=== PATIENT | female | born 1960 | race Caucasian/White ===

== ENCOUNTER 2019-04-13 19:34 | Emergency (ER) ==
[2019-04-13 19:37] VITALS: BP 113/69; TEMP 97.7; BMI 26.2
[2019-04-13] MEDS ORDERED: MORPHINE 2 MG/ML SYRINGE IM STA (20:07)
[2019-04-13] MEDS ORDERED: ZOFRAN 4 MG/2 ML IM STA (20:08)
--- NOTE | 2019-04-13 20:25 | CT ---
CT cervical spine without contrast HISTORY: Fall TECHNIQUE: CT of the cervical spine with multiplanar reformations. FINDINGS: Reformatted images demonstrate normal alignment with preservation of vertebral body height . Focal degenerative endplate change at the C5-6 with mild central canal narrowing. No fracture see n on the axial or reformatted images. No acute surrounding soft tissue abnormalitites. Lung apices a re clear. IMPRESSION: No acute findings in the cervical spine.
--- NOTE | 2019-04-13 20:28 | CT ---
EXAM: CT of the left shoulder without contrast. HISTORY: Fall. COMPARISON: None available. TECHNIQUE: Contiguous axial images were obtained through the left shoulder. Sagittal and coronal re formats were reviewed. No contrast. 3-D volume images reviewed as well. FINDINGS: There is a comminuted fracture of the left surgical neck extending to the greater tuberosi ty. The articular surfaces intact. No other fractures are seen. There are no lytic or blastic lesi ons. Is unremarkable. There are old, healed fractures of the lateral left fourth and fifth ribs. N o pneumothorax. IMPRESSION: Comminuted fracture of the surgical neck of the left proximal years.
--- NOTE | 2019-04-13 20:35 | ED.PDOC ---
General ED Provider: Dr. LEI AMAYA-ER Chief Complaint: Fall Stated Complaint: my shoulder hurts Time Seen by Physician: 19:40 Mode of Arrival: Walk-In Information Source: Patient Exam Limitations: No limitations Primary Care Provider: LEX MONTESINOS Nursing and Triage Documentation Reviewed and Agree: Yes Does patient meet sepsis criteria?: No System Inflammatory Response Syndrome: Not Applicable Sepsis Protocol: For patient's 13 years and over: Temp is 96.8 and below OR 101 and greater Pulse >90 BPM Resp >20/minute Acutely Altered Mental Status Are patient's symptoms suggestive of a new infection, such as: -Pneumonia -Skin, Soft Tissue -Endocarditis -UTI -Bone, Joint Infection -Implantable Device -Acute Abdominal Infection -Wound Infection -Meningitis -Blood Stream Catheter Infection -Unknown Musculoskeletal Complaint Exam - Shoulder Pain Complaint/Exam Mechanism of Injury: Reports: Trauma Onset/Duration: today Symptoms Are: Still present Initial Severity: Mild Current Severity: Moderate Location: Reports: Discrete Character: Reports: Dull, Aching, Throbbing, Spasmodic Aggravating: Reports: Movement, Lifting, Flexion, Extension Associated Signs and Symptoms: Denies: Swelling, Redness, Bruising, Fever, Weakness, Numbness, Tingling Tenderness: Present: Proximal humerus, Rotator cuff muscles Limited Range of Motion: Present: Abduction, Adduction, Flexion, Extension, Internal rotation Differential Diagnoses: Closed Fracture Review of Systems - Review Of Systems Constitutional: Reports: No symptoms Eyes: Reports: No symptoms Ears, Nose, Mouth, Throat: Reports: No symptoms Respiratory: Reports: No symptoms Cardiac: Reports: No symptoms GI: Reports: No symptoms : Reports: No symptoms Musculoskeletal: Reports: Joint pain, Muscle pain Skin: Reports: No symptoms Neurological: Reports: No symptoms Endocrine: Reports: No symptoms Hematologic/Lymphatic: Reports: No symptoms All Other Systems: Reviewed and Negative Past Medical History - Past Medical History Previously Healthy: No Endocrine: Reports: Unknown Cardiovascular: Reports: Unknown Respiratory: Reports: Unknown Hematological: Reports: Unknown Gastrointestinal: Reports: Unknown Genitourinary: Reports: Unknown Neuro/Psych: Reports: Unknown Musculoskeletal: Reports: Unknown Cancer: Reports: Unknown Last Menstrual Period: NONE - Surgical History General Surgical History: Reports: Unknown - Family History Family History: Reports: Unknown - Social History Smoking Status: Current every day smoker, Heavy tobacco smoker Hx Substance Use: No Alcohol Screening: Occasionally - Immunizations Tetanus Shot up to Date: Yes Physical Exam - Physical Exam Appearance: Well-appearing, No pain distress, Well-nourished Pain Distress: Moderate Eyes: YOLA, EOMI, Conjunctiva clear ENT: Ears normal, Nose normal, Oropharynx normal Neck: Supple Respiratory: Airway patent, Breath sounds clear, Breath sounds equal, Respirations nonlabored Cardiovascular: RRR, Pulses normal, No rub, No murmur GI/: Soft, Nontender, No masses, Bowel sounds normal, No Organomegaly Musculoskeletal: Limited ROM Skin: Warm, Dry, Normal color Neurological: Sensation intact, Motor intact, Reflexes intact, Cranial nerves intact, Alert, Oriented Psychiatric: Affect appropriate, Mood appropriate Interpretation - Radiology Interpretation Radiology Interpretation By: Radiologist Radiology Results: Positive Exam Interpreted: CT Scan Critical Care Note - Critical Care Note Total Time (mins): 0 Course - Course Orders, Labs, Meds: Orders Category Date Time Status Shoulder immobilizer [ED SPLINT APPLICATION] .ONCE EMERGENCY 04/13/19 20:31 Active Morphine Sulfate [Morphine 2 mg/ml Syringe] MEDS 04/13/19 20:07 Discontinued 2 mg IM ONCE STA Ondansetron HCl/Pf [Zofran 4 mg/2 ml] MEDS 04/13/19 20:08 Discontinued 4 mg IM ONCE STA CT CERVICAL SPINE W/O CONTRAST Stat RADS 04/13/19 19:[address] SHOULDER LEFT W/O CONTRAST Stat RADS 04/13/19 19:42 Completed Medications Discontinued Medications Generic Name Dose Route Start Last Admin Trade Name Freq PRN Reason Stop Dose Admin Morphine Sulfate 2 mg 04/13/19 20:07 04/13/19 20:12 Morphine 2 Mg/Ml Syringe IM 04/13/19 20:08 2 mg ONCE STA Administration Ondansetron HCl 4 mg 04/13/19 20:08 04/13/19 20:12 Zofran 4 Mg/2 Ml IM 04/13/19 20:09 4 mg ONCE STA Administration Vital Signs: Temp Pulse Resp BP Pulse Ox 04/13/19 19:34 97.7 F 74 18 113/69 98 Departure - Departure Time of Disposition: 20:34 Disposition: HOME SELF-CARE Discharge Problem: Humerus fracture Qualifiers: Encounter type: initial encounter Humerus Location: proximal Fracture type: closed Fracture morphology: unspecified fracture morphology Laterality: left Qualified Code(s): S42.202A - Unspecified fracture of upper end of left humerus , initial encounter for closed fracture Instructions: Proximal Humerus Fracture (ED) Condition: Good Pt referred to PMD for follow-up: Yes IPMP verified?: No Additional Instructions: see cljnic tomorrow to get ortho referral--stay in immobilizer Allergies/Adverse Reactions: Allergies No Known Allergies Allergy (Unverified 04/13/19 19:38) Home Medications: Ambulatory Orders Atorvastatin Calcium [Lipitor] 40 mg PO DAILY 04/13/19 Furosemide [Lasix] 20 mg PO PRN PRN 04/13/19 Levothyroxine Sodium [Euthyrox] 50 mcg PO DAILY 04/13/19 Lisinopril [Zestril] 2.5 mg PO DAILY 04/13/19 Pantoprazole Sodium [Protonix] 40 mg PO DAILY 04/13/19 Disposition Discussed With: Patient, Family
== END 2019-04-13 20:45 | disposition home or self-care (01) ==
LOC: ED 19:34
DX: S42.202A Unspecified fracture of upper end of left humerus, initial encounter for closed fracture (principal); W19.XXXA Unspecified fall, initial encounter; F17.210 Nicotine dependence, cigarettes, uncomplicated
CPT/HCPCS: 96372; 99282